=== PATIENT | male | born 1940 | race Caucasian/White ===

== ENCOUNTER 2019-01-06 09:56 | Inpatient (IN) | payer MEDICARE ==
--- NOTE | 2019-01-06 10:49 | RADIOLOGY REPORT (SQ) ---
EXAM DESCRIPTION: CHEST SINGLE VIEW COMPLETED DATE/TIME: 01/06/2019 10:45 am REASON FOR STUDY: cp COMPARISON: None. EXAM PARAMETERS: NUMBER OF VIEWS: One view. TECHNIQUE: Single frontal radiographic view of the chest acquired. RADIATION DOSE: NA LIMITATIONS: None. FINDINGS: LUNGS AND PLEURA: Mild bilateral interstitial airspace disease. MEDIASTINUM AND HILAR STRUCTURES: No masses. Contour normal. HEART AND VASCULAR STRUCTURES: Heart is enlarged. Mild central vascular prominence. BONES: No acute findings. HARDWARE: None in the chest. OTHER: No other significant finding. IMPRESSION: Cardiomegaly. Mild interstitial edema is suspected. TECHNICAL DOCUMENTATION: JOB ID: [id number] [email or web address]- All Rights Reserved Reading location - IP/workstation name: [email or web address]
[2019-01-06 11:00] LABS: ABSOLUTE BASOPHILS # (AUTO) 0.1 10^3/uL (0.0-0.2); ABSOLUTE EOSINOPHILS # (AUTO) 0.2 10^3/uL (0.0-0.6); ABSOLUTE LYMPHOCYTES (AUTO) 1.9 10^3/uL (0.5-4.7); ABSOLUTE MONOCYTES (AUTO) 0.9 10^3/uL (0.1-1.4); ABSOLUTE NEUT (AUTO) 6.4 10^3/uL (1.7-8.2); BASOPHILS % (AUTO) 0.8 % (0-2); EOSINOPHILS % (AUTO) 1.8 % (0-6); HEMATOCRIT 46.4 % (37.9-51.0); HEMOGLOBIN 15.5 g/dL (13.5-17.0); LYMPHOCYTES % (AUTO) 20.1 % (13-45); MEAN CORPUSCULAR HEMOGLOBIN 30.1 pg (27.0-33.4); MEAN CORPUSCULAR HGB CONC 33.4 g/dL (32.0-36.0); MEAN CORPUSCULAR VOLUME 90 fl (80-97); MONOCYTES % (AUTO) 9.6 % (3-13); PLATELET COUNT 216 10^3/uL (150-450); RED BLOOD COUNT 5.14 10^6/uL (4.35-5.55); RED CELL DISTRIBUTION WIDTH 15.5 % (11.5-14.0); SEGMENTED NEUTROPHILS % (AUTO) 67.7 % (42-78); TOTAL CELLS COUNTED % (AUTO) 100 %; WHITE BLOOD COUNT 9.5 10^3/uL (4.0-10.5)
[2019-01-06 11:21] LABS: INTERNATIONAL RATION (INR) 1.26; PROTHROMBIN TIME 16.4 SEC (11.4-15.4)
[2019-01-06 11:25] LABS: ALANINE AMINOTRANSFERASE 48 U/L (21-72); ALBUMIN 3.7 g/dL (3.5-5.0); ALKALINE PHOSPHATASE 63 U/L (38-126); ANION GAP 13 (5-19); ASPARTATE AMINO TRANSFERASE 63 U/L (17-59); BILIRUBIN,DIRECT 0.7 mg/dL (0.0-0.4); BILIRUBIN,TOTAL 1.3 mg/dL (0.2-1.3); BLOOD UREA NITROGEN 33 mg/dL (7-20); CALCIUM 9.5 mg/dL (8.4-10.2); CARBON DIOXIDE 24 mmol/L (22-30); CHLORIDE 90 mmol/L (98-107); CREATINE KINASE 75 U/L (55-170); GLUCOSE 153 mg/dL (75-110); LIPASE 105.2 U/L (23-300); POTASSIUM 5.1 mmol/L (3.6-5.0); SODIUM 126.8 mmol/L (137-145)
[2019-01-06] MEDS ORDERED: DIGOXIN INJ 0.5 MG/2 ML AMPULE IV ONE ×2 (11:27→14:30)
[2019-01-06 11:35] LABS: CREATINE KINASE MB 7.94 ng/mL (<4.55)
[2019-01-06 11:38] LABS: TROPONIN I 1.16 ng/mL
[2019-01-06] MEDS ORDERED: HEPARIN SODIUM,PORCINE/D5W 25,000 UNIT/250 ML RTUINJ IV PRN (12:12)
[2019-01-06] MEDS ORDERED: HEPARIN SOD (PORCINE) 1,000 UNIT/ML 10 ML VIAL IV ONE (12:12)
[2019-01-06] MEDS ORDERED: ACETAMINOPHEN 325 MG TABLET PO PRN (12:35)
[2019-01-06] MEDS ORDERED: ASPIRIN 81 MG TABLET, CHEWABLE PO ONE (12:35)
[2019-01-06] MEDS ORDERED: ONDANSETRON HCL INJ/PF 4 MG/2 ML SDV IV PRN (12:35)
[2019-01-06] MEDS ORDERED: ENOXAPARIN SODIUM INJ 60 MG/0.6 ML DISP.SYRIN SUBCUT SCH (12:45)
[2019-01-06] MEDS ORDERED: NITROGLYCERIN 2% OINTMENT 1 GM PACKET TP SCH (12:45)
--- NOTE | 2019-01-06 13:05 | ER Document Report ---
ED General - General Chief Complaint: Chest Pain Stated Complaint: CHEST PAIN Time Seen by Provider: 01/06/19 10:21 TRAVEL OUTSIDE OF THE [place] IN LAST 30 DAYS: No - HPI Patient complains to provider of: Chest pain generalized weakness Notes: Patient coming in today for right-sided chest pain generalized weakness dyspnea on exertion. The symptoms been ongoing for the last few days however chest pain started earlier this morning when the patient was resting sitting down eating breakfast. Patient states chest pain was right-sided and did go up into the right side of his neck. Patient states upon my evaluation still having some minimal pain however not as intense as it was initially. States pain lasted for a few minutes. Patient denies any nausea vomiting dizziness syncope with this. According to the family members at bedside patient normally resides in [facility] however is down in [place] in [place] during the winter months to stay with family. States he has been here in [place] for approximately the last 2 months. Otherwise patient was recently diagnosed at a local urgent care for new onset atrial fibrillation and has a echo to be per formed in the next 24 hours also was diagnosed with new onset CHF and was started on Lasix otherwise patient has a history of hypertension is on lisinopril no other medical issues patient except for COPD. Patient does not smoke at this time. Patient otherwise looks to be no obvious distress. States he has had some swelling in his legs and dyspnea on exertion unable to work approximately 20-30 feet without becoming very dyspneic. Denies any previous cardiac studies such as a 2D echo stress test catheterization. - Related Data Allergies/Adverse Reactions: No Known Allergies Allergy (Unverified 01/06/19 09:59) Past Medical History - Social History Smoking Status: Former Smoker Frequency of alcohol use: None Drug Abuse: None Family History: Reviewed & Not Pertinent Patient has suicidal ideation: No Patient has homicidal ideation: No - Past Medical History Cardiac Medical History: Reports: Hx Atrial Fibrillation, Hx Congestive Heart Failure Pulmonary Medical History: Reports: Hx COPD Renal/ Medical History: Denies: Hx Peritoneal Dialysis Past Surgical History: Reports: Hx Cholecystectomy, Hx Tonsillectomy Review of Systems - Review of Systems Constitutional: Weakness EENT: No symptoms reported Cardiovascular: Chest pain Respiratory: No symptoms reported Gastrointestinal: No symptoms reported Genitourinary: No symptoms reported Male Genitourinary: No symptoms reported Musculoskeletal: No symptoms reported Skin: No symptoms reported Hematologic/Lymphatic: No symptoms reported Neurological/Psychological: No symptoms reported -: Yes All other systems reviewed and negative Physical Exam - Vital signs Vitals: Pulse Ox 97 01/06/19 10:22 Interpretation: Normal - General General appearance: Appears well, Alert - HEENT Head: Normocephalic, Atraumatic Eyes: Normal Pupils: PERRL - Respiratory Respiratory status: No respiratory distress Chest status: Nontender Breath sounds: Normal Chest palpation: Normal - Cardiovascular Rhythm: Regular Heart sounds: Normal auscultation Murmur: No - Abdominal Inspection: Normal Distension: No distension Bowel sounds: Normal Tenderness: Nontender Organomegaly: No organomegaly - Back Back: Normal, Nontender - Extremities General upper extremity: Normal inspection, Nontender, Normal color, Normal ROM, Normal temperature General lower extremity: Normal inspection, Nontender, Edema - 2+ edema bilaterally, Normal color, Normal ROM, Normal temperature, Normal weight be aring. No: Darci's sign - Neurological Neuro grossly intact: Yes Cognition: Normal Orientation: AAOx4 [place] Coma Scale Eye Opening: Spontaneous [place] Coma Scale Verbal: Oriented [place] Coma Scale Motor: Obeys Commands [place] Coma Scale Total: 15 Speech: Normal Motor strength normal: LUE, RUE, LLE, RLE Sensory: Normal - Psychological Associated symptoms: Normal affect, Normal mood - Skin Skin Temperature: Warm Skin Moisture: Dry Skin Color: Normal Course - Re-evaluation Re-evalutation: 01/06/19 13:56 Chest x-ray shows mild interstitial edema EKG initially showed A. fib with increased rate possibly RVR. Patient was brought back immediately and was given a dose of digoxin. Did have improvement of his heart rate. Continue monitoring of the patient laboratory studies showed possible end STEMI. Troponin returned back at 1.1 with elevated BUN/creatinine showing renal failure also elevated BNP. I did discuss the case with the on-call shotgun shell assembly machine operator Dr. Balderas. At this time the patient is right-sided chest pain has resolved. Dr. Balderas has requested a VQ scan be obtained however at this time does not think the p atient requires transfer to tertiary care facility. Did discuss with hospitalist CRISTAL Barbosa who will come down and evaluate the patient for admission. Heparin drip was started due to elevated troponin A. fib and possibility of having a PE VQ scan is ordered. - Vital Signs Vital signs: Temp Pulse Resp BP Pulse Ox 14 112/94 H 96 01/06/19 12:01 01/06/19 12:01 01/06/19 12:01 - Laboratory Result Diagrams: 01/06/19 10:34 01/06/19 10:34 Laboratory results interpreted by me: 01/06/19 01/06/19 01/06/19 10:34 10:34 10:34 RDW 15.5 H PT 16.4 H Sodium 126.8 L Potassium 5.1 H Chloride 90 L BUN 33 H Creatinine 1.96 H Est GFR ( Amer) 40 L Est GFR (Non-Af Amer) 33 L Glucose 153 H Direct Bilirubin 0.7 H AST 63 H CK-MB (CK-2) NT-Pro-B Natriuret Pep 01/06/19 10:34 RDW PT Sodium Potassium Chloride BUN Creatinine Est GFR ( Amer) Est GFR (Non-Af Amer) Glucose Direct Bilirubin AST CK-MB (CK-2) 7.94 H NT-Pro-B Natriuret Pep 66082 H Critical Care Note - Critical Care Note Total time excluding time spent on procedures (mins): 35 Comments: Multiple evaluation patient with A. fib elevated rate and STEMI requiring consultation with specialty care members Discharge - Discharge Clinical Impression: New onset atrial fibrillation, NSTEMI (non-ST elevated myocardial infarction), Weakness, Right-sided chest pain, CHF (congestive heart failure) Condition: Good Disposition: ADMITTED INPATIENT Admitting Provider: Bharathiist Mojgan Barbosa/Eloisa Unit Admitted: [facility]
[2019-01-06] MEDS ORDERED: ALBUTEROL SULFATE HFA (90 MCG/PUFF) 200 PUFF/8.5 GM MDI IH PRN (13:42)
[2019-01-06] MEDS ORDERED: (PENDING PHARMACY ID) (Cyanocobalamin/Folic Ac/Vit B6 [Folbic Tablet] 1 TAB) PO SCH (13:45)
[2019-01-06] MEDS ORDERED: LISINOPRIL 5 MG TABLET PO SCH (13:45)
--- NOTE | 2019-01-06 14:19 | RADIOLOGY REPORT (SQ) ---
EXAM DESCRIPTION: NM LUNG VENT/PERF SCAN COMPLETED DATE/TIME: 01/06/2019 1:49 pm REASON FOR STUDY: cp elevated trop COMPARISON: Chest x-ray done earlier the same day. RADIONUCLIDE AND DOSE: 5.35 millicuries TC-99m MAA Intravenous 31.3 millicuries TC-99m DTPA Inhaled aerosol TECHNIQUE: Eight views of the lungs acquired post ventilation of DTPA aerosol. Eight matching views of the lungs acquired following injection of MAA. LIMITATIONS: None. FINDINGS: VENTILATION: Symmetric and homogeneous distribution of DTPA aerosol during ventilatory pha se. No significant areas of photopenia. PERFUSION: Perfusion images with normal homogenous activity and no wedge-shaped or segmental defects. No ventilation-perfusion mismatches. OTHER: No other significant finding. IMPRESSION: NORMAL VENTILATION-PERFUSION LUNG SCAN. NEGATIVE FOR PULMONARY EMBOLI. TECHNICAL DOCUMENTATION: JOB ID: [id number] [employer]- All Rights Reserved Reading location - IP/workstation name: [email or web address]
--- NOTE | 2019-01-06 14:37 | RADIOLOGY REPORT (SQ) ---
EXAM DESCRIPTION: CT ABDOMEN NO ORAL OR IV COMPLETED DATE/TIME: 01/06/2019 2:11 pm REASON FOR STUDY: EARLY SATIETY, diarrhea, bloating COMPARISON: None. TECHNIQUE: CT scan of the abdomen performed without intravenous contrast and without oral contrast. Images reviewed with lung, soft tissue, and bone windows. Reconstructed coronal and sagittal MPR im ages reviewed. All images stored on PACS. All CT scanners at this facility use dose modulation, iterative reconstruction, and/or weight based d osing when appropriate to reduce radiation dose to as low as reasonably achievable (ALARA). [facility]: Dose Right [facility]: CareDose [facility]: Dose Right [facility]: Teradose 4D [facility]: Smart [facility] [employer] RADIATION DOSE: CT Rad equipment meets quality standard of care and radiation dose reduction techniq ues were employed. CTDIvol: 18.9 mGy. DLP: 1070 mGy-cm.mGy. LIMITATIONS: None. FINDINGS: LOWER CHEST: There are small bilateral pleural effusions. There is bibasilar atelectasis. Probable underlying fibrosis. NONCONTRASTED LIVER, SPLEEN, ADRENALS: Evaluation limited by lack of IV contrast. No identified sign ificant masses. PANCREAS: No masses. No peripancreatic inflammatory changes. GALLBLADDER: Surgically absent. RIGHT KIDNEY AND URETER: No suspicious masses. Assessment limited by lack of IV contrast. No signif icant calcifications. No hydronephrosis or hydroureter. LEFT KIDNEY AND URETER: No suspicious masses. Assessment limited by lack of IV contrast. No signifi cant calcifications. No hydronephrosis or hydroureter. AORTA AND RETROPERITONEUM: Atherosclerotic change throughout the vascular structures. No aneurysm. BOWEL AND PERITONEAL CAVITY: Scattered diverticuli. No acute diverticulitis. No focal inflammatory changes. No free air or free fluid. APPENDIX: Normal. ABDOMINAL WALL: No abdominal wall hernias. BONES: No significant findings. OTHER: There is presacral soft tissue thickening. This is nonspecific IMPRESSION: 1. Small bilateral pleural effusions. 2. Scattered diverticuli. No acute diverticulitis. TECHNICAL DOCUMENTATION: JOB ID: [id number] Quality ID # [id number]: Final reports with documentation of one or more dose reduction techniques (e.g., Au tomated exposure control, adjustment of the mA and/or kV according to patient size, use of iterative reconstruction technique) 2010 [employer]- All Rights Reserved Reading location - IP/workstation name: [email or web address]
[2019-01-06] MEDS ORDERED: SODIUM POLYSTYRENE SULFONATE 15 GM/60 ML PO ONE (14:56)
--- NOTE | 2019-01-06 15:02 | PDOC H&P ---
History of Present Illness Admission Date/PCP: 01/06/2019 piping supervisor: Dr. Wayne Ybarra in [place] [phone] Patient complains of: Shortness of breath and lower extremity edema History of Present Illness: CLINTON TRUJILLO is a 78 year old male lives in [place] but comes to [facility] in the [place]. He has been relatively healthy all of his life. He is treated in [place] for underlying COPD and diet-controlled diabetes. The patient had been in his usual state of health until about 3 weeks ago. He started having worsening lower extremity edema and dyspnea on exertion. He was seen at a local urgent care and was found to have atrial fibrillation. He was not placed on any rate controlling medications at that time. The urgent care had ordered a 2D cardiac echo which has not been done. He had been started on 40 mg of Lasix daily as well as 5 mg of lisinopril daily. In any event over the past 2-3 days the patient has had increasing weakness. He has had difficulty walking due to the lower extremity edema and the worsening shortness of breath. The shortness of breath reached the point that he presented to the emergency room for further evaluation. When I went to see the patient he is resting in the bed. He is not in any acute distress and his heart rate is ranging between 100-110 while I am in the room. In addition to the edema and shortness of breath the patient has had some GI issues recently. He is not eating well at all and basically has been using supplements for the past week or so. He has early satiety and just takes a couple of bites of food and feels bloated. Usually he has had constipation but most recently has developed diarrhea. He had rather significant diarrhea a couple of days ago but has had none today. In the emergency room he was found to have atrial fibrillation with a rapid rate in the 120s-130s. He has multiple laboratory abnormalities. He has a relatively normal CBC with a hemoglobin of 15.5 and white count of 9.5. He has a chemistry panel reveals a sodium level of 126.8, potassium level of 5.1, creatinine of 1.96, glucose of 153 and a mildly elevated AST level. BNP is 11,400 and troponin initial troponin was elevated at 1.16. EKG reveals atrial fibrillation with a rate of 106 and a borderline prolonged QT interval. QTC is 485 484. Chest x-ray reveals cardiomegaly and mild pulmonary edema. In the emergency room the patient was given a dose of IV digoxin and his rate his improved but is still ranging between [address] Caal was called by the emergency room physician who felt that we could take care of this patient here. Past Medical History Cardiac Medical History: Reports: Atrial Fibrillation - Diagnosed just last week at an urgent care., Congestive Heart Failure - He has not had an echocardiogram. This was [facility] Pulmonary Medical History: Reports: Chronic Obstructive Pulmonary Disease (COPD) EENT Medical History: Reports: Cataracts Neurological Medical History: Reports: None Endocrine Medical History: Reports: Other - Diet controlled diabetes Renal/ Medical History: Denies: Chronic Kidney Disease, Nephrolithiasis Malignancy Medical History: Reports: None GI Medical History: Reports: None Musculoskeltal Medical History: Reports: None Skin Medical History: Reports: None Psychiatric Medical History: Reports: None, Tobacco Dependency Traumatic Medical History: Reports: None Hematology: Reports: None Infectious Medical History: Reports: None Past Surgical History Past Surgical History: Reports: Cholecystectomy, Tonsillectomy, Other - cataracts Social History Information Source: Patient Lives with: Spouse/Significant other Smoking Status: Former Smoker - He has a 50 year history of smoking but quir 3 years ago Frequency of Alcohol Use: None Drugs: None Hx Prescription Drug Abuse: No - Advance Directive Resuscitation Status: Full Code Surrogate healthcare decision maker:: Winnie Mlceod and his son Clinton Trujillo Family History Family History: CAD, Malignancy - esophgageal, Other - Alzheimers Parental Family History Reviewed: Yes Children Family History Reviewed: Yes Sibling(s) Family History Reviewed.: Yes Medication/Allergy Home Medications: Albuterol Sulfate [Proair HFA Inhalation Aerosol 8.5 gm MDI] 2 puff IH Q4HP PRN 01/06/19 Aspirin [Ecotrin] 81 mg PO DAILY 01/06/19 Cetirizine HCl [Allergy Relief] 10 mg PO DAILY 01/06/19 Cholecalciferol (Vitamin D3) [Vitamin D3 5000 unit Capsule] 5,000 unit PO DAILY 01/06/19 Cyanocobalamin (Vitamin B-12) [Vitamin B-12] 500 mcg SL DAILY 01/06/19 Cyanocobalamin/Folic AC/Vit B6 [Folbic Tablet] 1 tab PO DAILY 01/06/19 Furosemide [Lasix 40 mg Tablet] 40 mg PO DAILY 01/06/19 Ipratropium/Albuterol Sulfate [Combivent Respimat 4 gm Mdi] 1 puff IH BID 01/06/19 Lisinopril [Prinivil 5 mg Tablet] 5 mg PO DAILY 01/06/19 Allergies/Adverse Reactions: No Known Allergies Allergy (Unverified 01/06/19 09:59) Review of Systems Constitutional: PRESENT: fatigue, weakness. ABSENT: chills, fever(s), headache(s), night sweats, weight loss Eyes: ABSENT: visual disturbances Ears: ABSENT: hearing changes Cardiovascular: PRESENT: dyspnea on exertion, edema, orthropnea, palpitations. ABSENT: chest pain Respiratory: PRESENT: dyspnea. ABSENT: cough, hemoptysis, sputum Gastrointestinal: PRESENT: bloating, constipation, diarrhea, other - Early satiety. ABSENT: abdominal pain, dysphagia, hematemesis, hematochezia, nausea, vomiting Genitourinary: ABSENT: dysuria, hematuria Musculoskeletal: ABSENT: joint swelling Integumentary: ABSENT: rash, wounds Neurological: ABSENT: abnormal gait, abnormal speech, confusion, dizziness, focal weakness, syncope Psychiatric: ABSENT: anxiety, depression, homidical ideation, suicidal ideation Endocrine: ABSENT: cold intolerance, heat intolerance, polydipsia, polyuria Physical Exam Vital Signs: Temp Pulse Resp BP Pulse Ox 14 112/94 H 96 01/06/19 12:01 01/06/19 12:01 01/06/19 12:01 Intake & Output 01/05/19 01/06/19 01/07/19 06:59 06:59 06:59 Weight 114.9 kg General appearance: PRESENT: no acute distress, obese, well-developed, well-nourished Head exam: PRESENT: atraumatic, normocephalic Eye exam: PRESENT: conjunctiva pink, EOMI, PERRLA. ABSENT: scleral icterus Ear exam: PRESENT: normal external ear exam Mouth exam: PRESENT: moist, tongue midline Teeth exam: PRESENT: other Neck exam: ABSENT: carotid bruit, JVD, lymphadenopathy, thyromegaly Respiratory exam: PRESENT: crackles, decreased breath sounds Cardiovascular exam: PRESENT: other - Somewhat irregular GI/Abdominal exam: PRESENT: normal bowel sounds, soft. ABSENT: distended, guarding, mass, organolmegaly, rebound, tenderness Rectal exam: PRESENT: deferred Extremities exam: PRESENT: other - 2+ pitting edema that extends up into the presacral area. Musculoskeletal exam: PRESENT: ambulatory Neurological exam: PRESENT: alert, awake, oriented to person, oriented to place, oriented to time, oriented to situation, CN II-XII grossly intact. ABSENT: m otor sensory deficit Psychiatric exam: PRESENT: appropriate affect, normal mood. ABSENT: homicidal ideation, suicidal ideation Skin exam: PRESENT: dry, intact, warm. ABSENT: cyanosis, rash Results Laboratory Results: 01/06/19 10:34 01/06/19 10:34 01/06/19 01/06/19 01/06/19 10:34 10:34 10:34 WBC 9.5 RBC 5.14 Hgb 15.5 Hct 46.4 MCV 90 MCH 30.1 MCHC 33.4 RDW 15.5 H Plt Count 216 Seg Neutrophils % 67.7 Lymphocytes % 20.1 Monocytes % 9.6 Eosinophils % 1.8 Basophils % 0.8 Absolute Neutrophils 6.4 Absolute Lymphocytes 1.9 Absolute Monocytes 0.9 Absolute Eosinophils 0.2 Absolute Basophils 0.1 Sodium 126.8 L Potassium 5.1 H Chloride 90 L Carbon Dioxide 24 Anion Gap 13 BUN 33 H Creatinine 1.96 H Est GFR ( Amer) 40 L Est GFR (Non-Af Amer) 33 L Glucose 153 H Calcium 9.5 Total Bilirubin 1.3 AST 63 H ALT 48 Alkaline Phosphatase 63 Total Protein 7.0 Albumin 3.7 Lipase 105.2 TSH 2.82 01/06/19 01/06/19 10:34 10:34 Creatine Kinase 75 CK-MB (CK-2) 7.94 H Troponin I 1.160 NT-Pro-B Natriuret Pep 93812 H Impressions: Chest X-Ray 01/06/19 10:22 IMPRESSION: Cardiomegaly. Mild interstitial edema is suspected. Assessment and Plan - Diagnosis (1) New onset atrial fibrillation Is this a current diagnosis for this admission?: Yes Plan: The patient was diagnosed last week with new onset atrial fibrillation. I am going to give him an additional dose of IV digoxin and cardiology has been consulted. We will leave him on telemetry telemetry monitoring. Due to his elevated troponin we are going to start him on a heparin drip. Further plan of care per cardiology (2) NSTEMI (non-ST elevated myocardial infarction) Is this a current diagnosis for this admission?: Yes Plan: The patient has a troponin of 1.2. This could be driven by his atrial fib rillation and heart failure. We will trend his serial troponins overnight. Currently on a heparin drip. Blood pressure is a little bit on the low side. We will hold off on further orders until cardiology sees him. I have ordered a stat 2D cardiac echo (3) CHF (congestive heart failure) Is this a current diagnosis for this admission?: Yes Plan: I suspect this is systolic congestive heart failure due to his significant cardi omegaly on chest x-ray. He may have right-sided heart failure as well due to his lower extremity edema. He was placed on an JAIRO inhibitor last week which I will hold for now due to his renal failure as well as his hyperkalemia.. Echocardiogram has been ordered (4) Acute renal failure Is this a current diagnosis for this admission?: Yes Plan: The patient states that he is always had normal renal function. Currently his creatinine is 1.6. He does look a little bit dry at this point and I will defer to Dr. Balderas whether he needs to be diuresed. I will hold off on fluids for now. He has been receiving 40 mg of Lasix daily as well as an JAIRO inhibitor. I will stop the Lasix and we will defer to Dr. Balderas for ma nagement. He will have a chemistry panel drawn in the morning (5) Hyperkalemia Is this a current diagnosis for this admission?: Yes Plan: Possibly due to his acute renal failure versusHis JAIRO inhibitor. I am going to hold his JAIRO inhibitor until Dr. vasquez sees the patient. He will be given a one-time dose of Kayexalate today. (6) Acute hyponatremia Is this a current diagnosis for this admission?: Yes Plan: Of undetermined significance at this point. Will order serum and urine osmole's as well as urine sodium level. We will check a chemistry panel in the morning. (7) Early satiety Is this a current diagnosis for this admission?: Yes Plan: This is progressed to the point that the patient can hardly tolerate any p.o. intake. We will start with a noncontrasted CT scan of the abdomen and pelvis. He states that he feels quite bloated at times. He also complains that he has had issues with constipation but most recently developed diarrhea. Currently with no bowel movement. His abdominal exam is unremarkable. Will follow up with CT scan results. He does have a mildly elevated AST. He will have liver function tests drawn in the morning. (8) Full code status Is this a current diagnosis for this admission?: Yes - Time Time Spent with patient: 35 or more minutes - Inpatient Certification Medical Necessity: Other - The patient has been fully admitted to the hospital. He needs cardiology evaluation. He has new onset atrial fibrillation and congestive heart failure that need workup. I expect his hospitalization will span greater than 2 midnights.
[2019-01-06] MEDS ORDERED: HEPARIN SOD (PORCINE) 1,000 UNIT/ML 10 ML VIAL IV PRN (15:12)
[2019-01-06 15:24] LABS: CREATINE KINASE MB 6.95 ng/mL (<4.55); TROPONIN I 1.32 ng/mL
--- NOTE | 2019-01-06 16:46 | XCELERA REPORT ---
[address] [id number] Lower Extremity Venous Evaluation Procedure: A bilateral duplex scan of the lower extremity veins was performed. The evaluation included responses to compression and other maneuvers. Right Sided Venous Evaluation There is a 2.9 cms Popliteal aneurysm, with loose and adherent echogenic material. Triphasic flow at least to the distal Popliteal. Normal vessel filling wall to wall, compression and augmentation as well as Colour flow down to the infrageniculate veins. Left Sided Venous Evaluation Normal vessel filling wall to wall, compression and augmentation as well as Colour flow down to the infrageniculate veins. Critical Findings Discussed with Dang Barbosa at [id number]. Interpretation Summary No duplex evidence of DVT or obstruction in the bilateral lower extremities. 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 Name: CLINTON TRUJILLO Age: 78 yrs Gender: Male : 1940 Patient Status: Emergency Patient Location: [address] Study Date: 01/06/2019 03:37 PM Reason For Study: leg swelling Ordering Physician: DANG BARBOSA Performed By: Chato Thornton : DANG BARBOSA > French Dutta
[2019-01-06] MEDS ORDERED: PATIROMER 8.4 GM SUSP PACKET PO ONE (17:00)
[2019-01-06] MEDS ORDERED: IPRATROPIUM/ALBUTEROL 120 PUFF/4 GM MDI IH SCH (18:00)
[2019-01-06] MEDS ORDERED: NORMAL SALINE 1000 ML 1,000 ML IV ONE (20:00)
--- NOTE | 2019-01-06 20:51 | PDOC TRANSFER SUMMARY ---
General Admission Date/PCP: 01/06/19 13:45 Primary CARE physician: Dr. 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 I have spoken to vascular surgery as well as the hospitalist service and he will be transferred to a tertiary center as soon as a bed is found. (2) New onset atrial fibrillation Is this a current diagnosis for this admission?: Yes Diagnosis Summary: The patient had a rapid rate between 120 and 130. He is received 2 doses of IV digoxin. Currently remains in atrial fibrillation with a heart rate of around 106. (3) NSTEMI (non-ST elevated myocardial infarction) Is this a current diagnosis for this admission?: Yes Diagnosis Summary: Initial troponin was 1.1. At his risen to 1.3. Serial troponins will continue through the night until he is transferred. (4) CHF (congestive heart failure) Is this a current diagnosis for this admission?: Yes Diagnosis Summary: The patient has market cardiomegaly on his chest x-ray. I suspect this is a systolic congestive heart failure. I do not believe he is acute as he appears to be dry at this point. He was placed on 40 mg of Lasix at the urgent care and he has an acute kidney injury. Currently he is receiving 1 L of fluid. (5) Acute renal failure Is this a current diagnosis for this admission?: Yes Diagnosis Summary: Possibly from diuresis with IV Lasix. He will receive 1 L of normal saline tonight. (6) Hyperkalemia Is this a current diagnosis for this admission?: Yes Diagnosis Summary: He received a one-time dose of Veltassa (7) Acute hyponatremia Is this a current diagnosis for this admission?: Yes Diagnosis Summary: His sodium level was low at the time of admission. If he remains here overnight he will have a chemistry panel drawn in the morning. (8) Early satiety Is this a current diagnosis for this admission?: Yes Diagnosis Summary: He had a CT scan of the abdomen and pelvis which was unremarkable. He may need GI evaluation down the road but his other issues are far more important. The patient has not been eating well (9) Full code status Is this a current diagnosis for this admission?: Yes - Transfer Medications Home Medications: Albuterol Sulfate [Proair HFA Inhalation Aerosol 8.5 gm MDI] 2 puff IH Q4HP PRN 01/06/19 Aspirin [Ecotrin] 81 mg PO DAILY 01/06/19 Cetirizine HCl [Allergy Relief] 10 mg PO DAILY 01/06/19 Cholecalciferol (Vitamin D3) [Vitamin D3 5000 unit Capsule] 5,000 unit PO DAILY 01/06/19 Cyanocobalamin (Vitamin B-12) [Vitamin B-12] 500 mcg SL DAILY 01/06/19 Cyanocobalamin/Folic AC/Vit B6 [Folbic Tablet] 1 tab PO DAILY 01/06/19 Furosemide [Lasix 40 mg Tablet] 40 mg PO DAILY 01/06/19 Ipratropium/Albuterol Sulfate [Combivent Respimat 4 gm Mdi] 1 puff IH BID 01/06/19 Lisinopril [Prinivil 5 mg Tablet] 5 mg PO DAILY 01/06/19 Transfer Medications: Current Medications Acetaminophen (Tylenol 325 Mg Tablet) 650 mg PO Q4HP PRN PRN Reason: FOR HEADACHE Stop: 02/05/19 12:34 Albuterol (Proair Hfa Inhalation Aerosol 8.5 Gm Mdi) 2 puff IH Q4HP PRN PRN Reason: FOR WHEEZING Stop: 02/05/19 13:41 Albuterol/Ipratropium (Combivent Respimat 4 Gm Mdi) 1 puff IH BID CE Stop: 02/05/19 17:59 Last Admin: 01/06/19 18:46 Dose: 1 puff Documented by: Aspirin (Ecotrin 81 Mg Ec Tablet) 81 mg PO DAILY CE Stop: 02/06/19 09:59 Atorvastatin Calcium (Lipitor 80 Mg Tablet) 80 mg PO QHS CE Stop: 02/05/19 21:59 Cetirizine HCl (Zyrtec 10 Mg Tablet) 10 mg PO DAILY CE Stop: 02/06/19 09:59 Cholecalciferol (Vitamin D3 1000 Unit Tablet) 5,000 unit PO DAILY CE Stop: 02/06/19 09:59 Folic Acid (Folbee Tablet) 1 tab PO DAILY [facility] Stop: 02/06/19 09:59 Heparin Sodium (Porcine) (Heparin Inj 1,000 Unit/Ml 10 Ml Vial) 0 - 12,000 unit IV .BOLUS PER PROTOCOL PRN; Protocol PRN Reason: RESPOND TO aPTT VALUE Stop: 02/05/19 15:11 Heparin Sodium/Dextrose (Heparin Rtu 25,000 Unit/250 Ml D5w Premix) 25,000 unit in 250 mls @ 0 mls/hr IV CONTINUOUS PRN; Protocol PRN Reason: THIS MED IS NOT "PRN" Stop: 02/05/19 12:11 Last Admin: 01/06/19 14:14 Dose: 8.7 unit/kg/hr, 10 mls/hr Documented by: Sodium Chloride (Nacl 0.9% 1000 Ml Iv Soln) 1,000 mls @ 500 mls/hr IV X 1 BAG ONE Stop: 01/06/19 21:59 Last Admin: 01/06/19 19:48 Dose: 500 mls/hr Documented by: Lisinopril (Prinivil 5 Mg Tablet) 5 mg PO DAILY CE Stop: 02/05/19 13:44 Last Admin: 01/06/19 14:30 Dose: Not Given Documented by: Ondansetron HCl (Zofran Inj/Pf 4 Mg/2 Ml Sdv) 4 mg IV Q6HP PRN PRN Reason: FOR NAUSEA/VOMITING Stop: 02/05/19 12:34 Patient Own Medication (Cyanocobalamin (Vitamin B-12) [Vitamin B-12]) 500 mcg SL .DAILY CE Stop: 02/06/19 09:59 Sodium Chloride (Saline Flush 2.5 Ml Monoject Prefil Syrin) 2.5 ml IV Q8 CE Stop: 02/05/19 13:59 Last Admin: 01/06/19 14:26 Dose: Not Given Documented by: - Allergies Allergies/Adverse Reactions: No Known Allergies Allergy (Unverified 01/06/19 09:59) - Diet/Activity Discharge Diet: Clear Liquids Hospital Course Hospital Course: The patient is an 78-year-old male with a past medical history significant for COPD. He has had no other significant medical problems and has never been hospitalized. He presented to the emergency room with a 3-week history of worsening shortness of breath and lower extremity edema. He had been seen at a local urgent care and an EKG revealed that he was in atrial fibrilla tion with a controlled rate. The provider that saw him felt as if he needed an echocardiogram and was in the process of setting one up as an outpatient. The patient does not have any physicians locally as he resides in [place]. He comes down here for a couple of months in the winter as 1 of their children lives here. In any event his shortness of breath worsened. He presented to our facility this morning and was found to be in atrial fibrillation with rapid ventricular response. His rate was in the 120s-130s. Initial troponin was elevated at 1.1. He had evidence of acute renal failure with a creatinine of 1.9 and a BUN of 33. He had sodium level of 126, potassium of 5.1. BNP was e levated 11,400. EKG revealed atrial fibrillation with a rapid rate. Chest x- ray revealed cardiomegaly with evidence of mild pulmonary edema. The patient's told me that when they were driving to [place] over the weekend that the patient developed pain in his calves. Due to this I ordered venous Dopplers which revealed a 2.9 cm aneurysm and the vascular surgeon who read the scan felt as if it was potentially limb threatening and recommended transfer to facility that had vascular surgery. Also at the time of admission the patient reports a several week history of early satiety. He feels bloated. Usually he is constipated but recently had a bout of diarrhea. He states that really he is not been able to eat anything because he just gets so full when he put something in his mouth. He has been drinking supplements. The patient has been admitted to the hospital. He is received 2 doses of IV digoxin and currently he remains in atrial fibrillation with a heart rate of about 106. He has been borderline hypotensive and clinically on exam looks dry. He is being given 1 L of IV fluids this evening. He has had a VQ scan which was negative for pulmonary embolus. CT scan of the abdomen and pelvis which was unremarkable. He has had a 2D echocardiogram performed and the results are not available as of the time of this dictation. Currently he is on a heparin drip. At the time of this dictation the patient has been accepted to 3 local facilities and is currently waiting on a bed. He has been accepted at [facility] under the service of Dr. Genevieve Bonner. He has been accepted at [facility] by Dr. Zapata. He has been accepted at [facility] by Dr. Akshat Mullins. None of these facilities have beds available and he will be transferred to the first 1 who has a bed. Physical Exam Vital Signs: Temp Pulse Resp BP Pulse Ox 97.3 F 112 H 18 93/74 L 95 01/06/19 17:12 01/06/19 19:44 01/06/19 19:44 01/06/19 19:44 01/06/19 19:44 Intake & Output 01/05/19 01/06/19 01/07/19 06:59 06:59 06:59 Output Total 0 Balance 0 Weight 117.9 kg General appearance: PRESENT: no acute distress, well-developed, well-nourished Head exam: PRESENT: atraumatic, normocephalic Eye exam: PRESENT: conjunctiva pink, EOMI, PERRLA. ABSENT: scleral icterus Mouth exam: PRESENT: dry mucosa Respiratory exam: PRESENT: crackles - He has some very fine crackles in the lower bases bilaterally but otherwise his lungs sound fairly clear Cardiovascular exam: PRESENT: RRR, systolic murmur. ABSENT: diastolic murmur, rubs Pulses: PRESENT: other - He has palpable dorsalis pedis and posterior tibial pulses on the left foot. He has very weak pulses noted on the right foot. Vascular exam: PRESENT: pallor - On the right lower extremity GI/Abdominal exam: PRESENT: normal bowel sounds, soft. ABSENT: distended, guarding, mass, organolmegaly, rebound, tenderness Rectal exam: PRESENT: deferred Extremities exam: PRESENT: +2 edema - That extends into the presacral area, other - Both of his feet are cool. He has dusky toes on the right foot that are somewhat discolored.. ABSENT: calf tenderness Neurological exam: PRESENT: alert, awake, oriented to person, oriented to place, oriented to time, oriented to situation, CN II-XII grossly intact. ABSENT: m otor sensory deficit Psychiatric exam: PRESENT: appropriate affect, normal mood. ABSENT: homicidal ideation, suicidal ideation Skin exam: PRESENT: dry, intact, warm. ABSENT: cyanosis, rash Results Laboratory Results: 01/06/19 10:34 01/06/19 10:34 0301/06/19 01/06/19 10:34 10:34 10:34 WBC 9.5 RBC 5.14 Hgb 15.5 Hct 46.4 MCV 90 MCH 30.1 MCHC 33.4 RDW 15.5 H Plt Count 216 Seg Neutrophils % 67.7 Lymphocytes % 20.1 Monocytes % 9.6 Eosinophils % 1.8 Basophils % 0.8 Absolute Neutrophils 6.4 Absolute Lymphocytes 1.9 Absolute Monocytes 0.9 Absolute Eosinophils 0.2 Absolute Basophils 0.1 Sodium 126.8 L Potassium 5.1 H Chloride 90 L Carbon Dioxide 24 Anion Gap 13 BUN 33 H Creatinine 1.96 H Est GFR ( Amer) 40 L Est GFR (Non-Af Amer) 33 L Glucose 153 H Calcium 9.5 Total Bilirubin 1.3 AST 63 H ALT 48 Alkaline Phosphatase 63 Total Protein 7.0 Albumin 3.7 Lipase 105.2 TSH 2.82 01/06/19 01/06/19 01/06/19 10:34 10:34 14:32 Creatine Kinase 75 CK-MB (CK-2) 7.94 H 6.95 H Troponin I 1.160 1.320 NT-Pro-B Natriuret Pep 00400 H 01/06/19 14:32 Creatine Kinase 72 CK-MB (CK-2) Troponin I NT-Pro-B Natriuret Pep Impressions: Abdomen CT 01/06/19 00:00 IMPRESSION: 1. Small bilateral pleural effusions. 2. Scattered diverticuli. No acute diverticulitis. Chest X-Ray 01/06/19 10:22 IMPRESSION: Cardiomegaly. Mild interstitial edema is suspected. [facility] 01/06[facility] 11:58 IMPRESSION: NORMAL VENTILATION-PERFUSION LUNG SCAN. NEGATIVE FOR PULMONARY EMBOLI. Plan Discharge Plan: Overall this patient needs to be transferred to a facility that has vascular surgery available as soon as possible. He has been accepted at 3 local facilities and will be transferred as soon as a bed is found. Time Spent: Greater than 30 Minutes
[2019-01-06 21:31] LABS: CREATINE KINASE MB 3.73 ng/mL (<4.55)
[2019-01-06 21:41] LABS: TROPONIN I 0.905 ng/mL
--- NOTE | 2019-01-06 21:49 | EKG REPORT ---
SEVERITY:- ABNORMAL ECG - ATRIAL FIBRILLATION BORDERLINE REPOL ABNORMALITY, INF-LAT LEADS BORDERLINE PROLONGED QT INTERVAL : Confirmed by: Jaz Balderas MD 06-Jan-2019 21:49:01
--- NOTE | 2019-01-06 21:49 | EKG REPORT ---
SEVERITY:- ABNORMAL ECG - ATRIAL FIBRILLATION NONSPECIFIC INTRAVENTRICULAR CONDUCTION DELAY ST DEPRESSION, CONSIDER ISCHEMIA, ANT-LAT LDS : Confirmed by: Jaz Balderas MD 06-Jan-2019 21:49:06
[2019-01-06] MEDS ORDERED: ATORVASTATIN CALCIUM 80 MG TABLET PO SCH (22:00)
--- NOTE | 2019-01-06 23:04 | PDOC CONSULTATION ---
Consultation-Blank Consultation: CARDIOLOGY CONSULTATION by Dr. Jaz Balderas on 01/06/2019. Patient seen at 5 PM on 01/06/2019. REASON FOR CONSULTATION: Patient with atrial fibrillation, of recent onset, with heart failure, and elevated troponin I. 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 HISTORY OF PRESENT ILLNESS: Patient is a 78-year-old male who lives in [place], but resides in [place] during the winter, states that is about 2 weeks ago started having progressive dyspnea on exertion. He was seen in the urgent care and found to be in new onset atrial fibrillation, and also heart failure. He was recommended to have a echocardiogram, and for further workup was set up with a teacher industrial arts. But the patient today had increasing shortness of breath with PND orthopnea and an increasing leg edema and weight gain, and came to the emergency room he was also having right-sided chest pain. He has a history of COPD, but no history of sleep apnea or asthma. He had a V/Q scan which was negative for pulmonary embolism. 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 The patient denies any prior history of WA or anginal symptoms. No prior history of atrial fibrillation except when he was diagnosed about 2 weeks ago. There is no history of TIA or CVA. There is no history of hypertension. The patient does have orthopnea PND and leg edema. There is no clear-cut anginal symptoms. There is no history of TIA CVA. He has history of diet-controlled diabetes mellitus. Although he states and corroborated by the son, the patient has no prior history of chronic chronic kidney disease, the patient's GFR is reduced. PAST MEDICAL ILLNESS: No history of hypertension or coronary artery disease. No history of WA. No prior history of congestive heart failure. Congestive heart failure seems to be recent onset of 2 weeks ago. No history of palpitations or cardiac arrhythmia. Newly diagnosed atrial fibrillation about 2 weeks ago. No history of syncope. No history of WA or anginal symptoms. No prior history of heart failure. Recent symptoms of PND and orthopnea and increasing leg edema. The patient had right leg pain about 2 weeks ago, but none recently except for swelling of the lower extremities. There is no symptoms suggestive of cellulitis of the legs or DVT in the past. He has no history of TIA CVA. He has history of diet-controlled diabetes mellitus. As mentioned earlier no prior history of chronic kidney disease. No history of TIA CVA. PAST SURGICAL HISTORY: Cholecystectomy. Tonsillectomy. Cataract surgery. Social HISTORY: The patient is a non-smoker. He quit smoking long time ago. There is no history of EtOH abuse. FAMILY HISTORY: No history of coronary artery disease or hypertension in the family. No history of sudden . ALLERGIES:: The patient has no known allergies. DISPOSITION: The patient is a full code. The patient's son is surrogate healthcare decision maker Review SYSTEMS: CONSTITUTIONAL: Denies any fever chills or rigors. Complains of generalized fatigue and weakness. HEAD: No history of headaches or head injury. EYES: No history of amblyopia diplopia. No history of amaurosis fugax. EARS: No history of hearing loss. No history of tinnitus. No history of recurrent ear infections. NOSE: No history of nosebleeds. No history of nasal polyps. No history of hayfever. MOUTH: No history of altered taste sensation. No history of ulcers in the mouth. THROAT: No history of odynophagia or dysphagia. No history of recurrent sore throats. SKIN: No history of pruritus. No history of yellowish discoloration of the skin. No history of psoriasis. No history of eczema. NECK: No history of neck pain. No swelling in the neck. LUNGS: History of COPD, no recent symptoms of acute exacerbation of COPD. No history of sleep apnea. No sick pulmonary embolism. No history of cough or wheezing. No history of pleuritic chest pain no history of hemoptysis. CARDIAC: Denies history of hypertension. No prior history of coronary artery disease. Patient with the elevated troponin I, without anginal symptoms. Noncardiac right-sided chest pain. This point first episode of admission for atrial fibrillation, with the atrial fibrillation onset being about 2 weeks ago. Clearly the patient will benefit from chronic anticoagulations therapy. Would recommend giving the patient digoxin 0.125 mg x2 doses to control the heart rate, since the blood pressure is on the low side. Patient with symptoms of biventricular failure. With the PND orthopnea leg edema. No history of syncope. No prior history of congestive heart failure. GI: No history of GI bleed. No history of fatty food intolerance. No history of altered bowel movements. No history of abdominal pain. No cervicitis. No history of cirrhosis. NO HISTORY OF JAUNDICE. Endocrine: History of diet-controlled diabetes mellitus. No history of thyroid disease. RENAL: Patient with the acute renal failure whether this is acute on chronic kidney disease is not known, since prior records not available from [place]. No symptoms a UTI. No history of hematuria pyuria dysuria. MUSCULOSKELETAL: Denies arthritis or collagen vascular disease. CURRENCY EXCHANGE SPECIALIST: No history of TIA CVA. No history of seizures headaches or migraines. PSYCHIATRIC: No history of anxiety or depression. No history of suicidal ideation. No history of homicidal ideation. VASCULAR: Patient with the diagnosis of popliteal aneurysm which may be limb threatening due to ischemia. No history of DVT. No prior history of calf or buttock claudication. HEMATOLOGICAL: No history of bleeding diathesis. No history of clotting disorders. PHYSICAL EXAMINATION: The patient is moderately obese. He is well-groomed. At present in no acute distress. Selected Entries 01/06/19 17:12 Temperature 97.3 F Temperature Oral Source Pulse Rate 106 H Pulse Rate [ 90 Right Finger] Respiratory 14 Rate Blood Pressure 100/71 [Left Upper Arm ] Blood Pressure 95/77 L [Right Upper Arm] Blood Pressure 80 Mean [Left Upper Arm] Blood Pressure 83 Mean [Right Upper Arm] Blood Pressure Supine Position [Left Upper Arm] Blood Pressure Supine Position [Right Upper Arm] O2 Sat by Pulse 98 Oximetry Oxygen Delivery Room Air Method ( includes room air) HEAD: Is atraumatic normocephalic. EYES: Pupils are equal round regular reactive to light accommodation. Extraocular movements are normal. There is no clinical pallor. There is no scleral icterus. EARS: Tympanic membranes are intact. External auditory canals are clear. NOSE: There is no deviated nasal septum. There is no inflammation of these mucous membrane. MOUTH: Mucous members of mouth are moist tongue is moist there is no ulcers. There is no bleeding from the gums. THROAT: There is no redness of the oropharynx. There is no exudates. SKIN: There is no skin lesions or skin rashes. There is no particular ecchymosis. NECK: There is mild JVD present. Carotids are equal there is no bruit. There is no lymphadenopathy. There is no goiter. There is no accessory muscle respiration use. Trachea central. LUNGS: Show diminished air entry, and prolonged expiration. There is bibasilar rales of CHF. There is no rhonchi or wheezing. HEART: S1-S2 is heard. S1 is of variable intensity. There is mild aortic sclerosis versus nonsignificant aortic stenosis murmur. There is mild mitral regurgitation murmur heard in the apex with radiation to the left axilla. There is no S3 gallop. There is no S4 gallop. There is systolic murmur left sternal border and the apex there is no rub. ABDOMEN: Is soft. Nontender. There is no hepatosplenomegaly. Bowel sounds well heard. There is no tender areas of masses. EXTREMITIES: Femorals are slightly diminished. There is no femoral bruits. Leg pulses are slightly diminished on the right side. Left is normal. There is a nontender small mildly expansile, and mildly pulsatile mass in the right popliteal region. There is 2-3+ pedal edema bilaterally up to the thigh. There is no cellulitis. The there is no neurovascular compromise in both lower extremities, although there is a little delayed capillary refill on the right foot. There is no calf tenderness. There is no clubbing. CURRENCY EXCHANGE SPECIALIST: The patient is conscious awake alert oriented x3 with no focal deficits. PSYCHIATRIC: The patient judgment insight are intact her affect is normal. EKG: Shows atrial fibrillation with diffuse nonspecific ST-T changes. The patient's venous Dopplers shows no evidence of superficial or deep vein thrombosis. There is a popliteal aneurysm on the right side with the potential limb threatening partial occlusion. Current Medications Generic Name Dose Route Start Last Admin Trade Name Freq PRN Reason Stop Dose Admin Acetaminophen 650 mg 01/06/19 12:35 Tylenol 325 Mg Tablet PO 02/05/19 12:34 Q4HP PRN FOR HEADACHE Albuterol 2 puff 01/06/19 13:42 Proair Hfa Inhalation Aerosol 8.5 Gm Mdi 02/05/19 13:41 Q4HP PRN FOR WHEEZING Albuterol/Ipratropium 1 puff 01/06/19 18:00 01/06/19 18:46 Combivent Respimat 4 Gm Mdi 02/05/19 17:59 1 puff BID CE Administration Aspirin 81 mg 01/07/19 10:00 Ecotrin 81 Mg Ec Tablet PO 02/06/19 09:59 DAILY [facility] Atorvastatin Calcium 80 mg 01/06/19 22:00 01/06/19 21:13 Lipitor 80 Mg Tablet PO 02/05/19 21:59 80 mg QHS CE Administration Cetirizine HCl 10 mg 01/07/19 10:00 Zyrtec 10 Mg Tablet PO 02/06/19 09:59 DAILY [facility] Cholecalciferol 5,000 unit 01/07/19 10:00 Vitamin D3 1000 Unit Tablet PO 02/06/19 09:59 DAILY [facility] Folic Acid 1 tab 01/07/19 10:00 Folbee Tablet PO 02/06/19 09:59 DAILY [facility] Heparin Sodium (Porcine) 0 - 12,000 unit 01/06/19 15:12 Heparin Inj 1,000 Unit/Ml 10 Ml Vial IV 02/05/19 15:11 .BOLUS PER PROTOCOL PRN RESPOND TO aPTT VALUE Protocol Heparin Sodium/Dextrose 25,000 unit in 250 mls @ 0 mls/hr 01/06/19 12:12 01/06/19 14:14 Heparin Rtu 25,000 Unit/250 Ml D5w Premix IV 02/05/19 12:11 8.7 unit/kg/hr CONTINUOUS PRN 10 mls/hr THIS MED IS NOT "PRN" Administration Protocol Titrate Lisinopril 5 mg 01/06/19 13:45 01/06/19 14:30 Prinivil 5 Mg Tablet PO 02/05/19 13:44 Not Given DAILY [facility] Ondansetron HCl 4 mg 01/06/19 12:35 Zofran Inj/Pf 4 Mg/2 Ml Sdv IV 02/05/19 12:34 Q6HP PRN FOR NAUSEA/VOMITING Patient Own Medication 500 mcg 01/07/19 10:00 Cyanocobalamin (Vitamin B-12) [Vitamin B-12] SL 02/06/19 09:59 .DAILY [facility] Sodium Chloride 2.5 ml 01/06/19 14:00 01/06/19 21:13 Saline Flush 2.5 Ml Monoject Prefil Syrin IV 02/05/19 13:59 2.5 ml Q8 CE Administration Discontinued Medications Generic Name Dose Route Start Last Admin Trade Name Freq PRN Reason Stop Dose Admin Aspirin 324 mg 01/06/19 12:35 01/06/19 14:10 Aspirin 81 Mg Chewable Tablet PO 01/06/19 12:36 324 mg NOW ONE Administration Digoxin 0.25 mg 01/06/19 11:27 01/06/19 11:43 Lanoxin Inj 0.5 Mg/2 Ml Ampule IV 01/06/19 11:28 0.25 mg NOW ONE Administration Digoxin 0.125 mg 01/06/19 14:30 01/06/19 15:34 Lanoxin Inj 0.5 Mg/2 Ml Ampule IV 01/06/19 14:31 Not Given NOW ONE Enoxaparin Sodium 35 mg 01/06/19 12:45 01/06/19 14:09 Lovenox Inj 60 Mg/0.6 Ml Disp.Syrin SUBCUT 02/05/19 12:44 Not Given Q12 [facility] Heparin Sodium (Porcine) 4,000 unit 01/06/19 12:12 01/06/19 12:47 Heparin Inj 1,000 Unit/Ml 10 Ml Vial IV 01/06/19 12:13 4,000 unit NOW ONE Administration Sodium Chloride 1,000 mls @ 500 mls/hr 01/06/19 20:00 01/06/19 19:48 Nacl 0.9% 1000 Ml Iv Soln IV 01/06/19 21:59 500 mls/hr X 1 BAG ONE Administration Nitroglycerin 0.5 gm 01/06/19 12:45 01/06/19 13:41 Nitrol 2% Ointment 1gm Packet TP 02/05/19 12:44 Not Given Q6 [facility] Patiromer 8.4 gm 01/06/19 17:00 01/06/19 18:28 [place] 8.4 Gm Susp Packet PO 01/06/19 17:01 8.4 gm NOW ONE Administration HOME MEDICATION: Albuterol Sulfate [Proair HFA Inhalation Aerosol 8.5 gm MDI] 2 puff IH Q4HP PRN 01/06/19 Aspirin [Ecotrin] 81 mg PO DAILY 01/06/19 Cetirizine HCl [Allergy Relief] 10 mg PO DAILY 01/06/19 Cholecalciferol (Vitamin D3) [Vitamin D3 5000 unit Capsule] 5,000 unit PO DAILY 01/06/19 Cyanocobalamin (Vitamin B-12) [Vitamin B-12] 500 mcg SL DAILY 01/06/19 Cyanocobalamin/Folic AC/Vit B6 [Folbic Tablet] 1 tab PO DAILY 01/06/19 Furosemide [Lasix 40 mg Tablet] 40 mg PO DAILY 01/06/19 Ipratropium/Albuterol Sulfate [Combivent Respimat 4 gm Mdi] 1 puff IH BID 01/06/19 Lisinopril [Prinivil 5 mg Tablet] 5 mg PO DAILY 01/06/19 Labs- Entire Visit 01/06/19 01/06/19 01/06/19 10:34 10:34 10:34 WBC 9.5 RBC 5.14 Hgb 15.5 Hct 46.4 MCV 90 MCH 30.1 MCHC 33.4 RDW 15.5 H Plt Count 216 Seg Neutrophils % 67.7 Lymphocytes % 20.1 Monocytes % 9.6 Eosinophils % 1.8 Basophils % 0.8 Absolute Neutrophils 6.4 Absolute Lymphocytes 1.9 Absolute Monocytes 0.9 Absolute Eosinophils 0.2 Absolute Basophils 0.1 PT 16.4 H INR 1.26 APTT Sodium 126.8 L Potassium 5.1 H Chloride 90 L Carbon Dioxide 24 Anion Gap 13 BUN 33 H Creatinine 1.96 H Est GFR ( Amer) 40 L Est GFR (Non-Af Amer) 33 L Glucose 153 H Hemoglobin A1c % Calcium 9.5 Total Bilirubin 1.3 Direct Bilirubin 0.7 H Neonat Total Bilirubin Not Reportable Neonat Direct Bilirubin Not Reportable Neonat Indirect Bili Not Reportable AST 63 H ALT 48 Alkaline Phosphatase 63 Creatine Kinase 75 CK-MB (CK-2) Troponin I NT-Pro-B Natriuret Pep Total Protein 7.0 Albumin 3.7 Lipase 105.2 TSH 01/06/19 01/06/19 01/06/19 10:34 10:34 10:34 WBC RBC Hgb Hct MCV MCH MCHC RDW Plt Count Seg Neutrophils % Lymphocytes % Monocytes % Eosinophils % Basophils % Absolute Neutrophils Absolute Lymphocytes Absolute Monocytes Absolute Eosinophils Absolute Basophils PT INR APTT 33.4 Sodium Potassium Chloride Carbon Dioxide Anion Gap BUN Creatinine Est GFR ( Amer) Est GFR (Non-Af Amer) Glucose Hemoglobin A1c % Calcium Total Bilirubin Direct Bilirubin Neonat Total Bilirubin Neonat Direct Bilirubin Neonat Indirect Bili AST ALT Alkaline Phosphatase Creatine Kinase CK-MB (CK-2) 7.94 H Troponin I 1.160 NT-Pro-B Natriuret Pep 09978 H Total Protein Albumin Lipase TSH 2.82 01/06/19 01/06/19 01/06/19 10:34 14:32 14:32 WBC RBC Hgb Hct MCV MCH MCHC RDW Plt Count Seg Neutrophils % Lymphocytes % Monocytes % Eosinophils % Basophils % Absolute Neutrophils Absolute Lymphocytes Absolute Monocytes Absolute Eosinophils Absolute Basophils PT INR APTT Sodium Potassium Chloride Carbon Dioxide Anion Gap BUN Creatinine Est GFR ( Amer) Est GFR (Non-Af Amer) Glucose Hemoglobin A1c % 5.7 Calcium Total Bilirubin Direct Bilirubin Neonat Total Bilirubin Neonat Direct Bilirubin Neonat Indirect Bili AST ALT Alkaline Phosphatase Creatine Kinase 72 CK-MB (CK-2) 6.95 H Troponin I 1.320 NT-Pro-B Natriuret Pep Total Protein Albumin Lipase TSH 01/06/19 01/06/19 01/06/19 18:40 20:30 20:30 WBC RBC Hgb Hct MCV MCH MCHC RDW Plt Count Seg Neutrophils % Lymphocytes % Monocytes % Eosinophils % Basophils % Absolute Neutrophils Absolute Lymphocytes Absolute Monocytes Absolute Eosinophils Absolute Basophils PT INR APTT 68.3 H D Sodium Potassium Chloride Carbon Dioxide Anion Gap BUN Creatinine Est GFR ( Amer) Est GFR (Non-Af Amer) Glucose Hemoglobin A1c % Calcium Total Bilirubin Direct Bilirubin Neonat Total Bilirubin Neonat Direct Bilirubin Neonat Indirect Bili AST ALT Alkaline Phosphatase Creatine Kinase 49 L CK-MB (CK-2) 3.73 Troponin I 0.905 NT-Pro-B Natriuret Pep Total Protein Albumin Lipase TSH Abdomen CT 01/06/19 00:00 IMPRESSION: 1. Small bilateral pleural effusions. 2. Scattered diverticuli. No acute diverticulitis. Chest X-Ray 01/06/19 10:22 IMPRESSION: Cardiomegaly. Mild interstitial edema is suspected. Lung Scan-VQ NM 01/06/19 11:58 IMPRESSION: NORMAL VENTILATION-PERFUSION LUNG SCAN. NEGATIVE FOR PULMONARY EMBOLI. IMPRESSION/RECOMMENDATION: 1. Limb threatening right popliteal aneurysm: Agree with continue the patient on heparin. Patient being transferred for this to an acute care hospital[facility]. 2. Elevated troponin I: Most likely secondary to supply demand mismatch secondary to patient's renal failure, atrial fibrillation with rapid ventricular response, and congestive heart failure. Doubt non-ST elevation WA. But the patient needs further workup to rule out cardiac cardiac etiology etiology of troponin I is elevation that is need to rule out non-ST elevation WA. 3. Atrial fibrillation at present with ventricular response fairly fast, but not very rapid. Continue IV heparin. Patient's corrected James vas 2 score is at least 3. Hence patient will benefit from long-term anticoagulation treatment. 4. Acute renal failure:? Acute on chronic kidney disease.: Avoid nephrotoxic drugs. Would recommend follow the patient's renal functions closely. 5. Congestive heart failure: Most likely related to rate, but need to rule out cardiomyopathy as a cause of patient's failure, and also need to assess for pulmonary hypertension/right heart failure causing leg edema. Would later recommend to get a echocardiogram to assess right and left heart pressures and LV and RV function. And possible valvular disease. 6. Diabetes mellitus, diet controlled. Watch Accu-Cheks closely. 7. Most likely clinically has aortic sclerosis versus non-hemodynamically significant aortic stenosis, and possibly mild mitral regurgitation. Hence would recommend echocardiogram to assess these. The patient's age, diabetes mellitus [diet-controlled], congestive heart failure, and atrial fibrillation patient later would need assessment for possible presence of underlying significant coronary artery disease. Medications reviewed. Management plan discussed with attending physician on the case. 60 minutes spent on this patient with more than 50% of time spent in direct patient care. Medical decision making is of high complexity. Since the patient being transferred to a tertiary care center, will sign off.
[2019-01-07 02:36] LABS: HEMATOCRIT 40.9 % (37.9-51.0); HEMOGLOBIN 13.8 g/dL (13.5-17.0); MEAN CORPUSCULAR HGB CONC 33.6 g/dL (32.0-36.0); MEAN CORPUSCULAR VOLUME 89 fl (80-97); PLATELET COUNT 186 10^3/uL (150-450); RED BLOOD COUNT 4.58 10^6/uL (4.35-5.55); RED CELL DISTRIBUTION WIDTH 14.9 % (11.5-14.0); WHITE BLOOD COUNT 7.6 10^3/uL (4.0-10.5)
[2019-01-07 03:31] LABS: CREATINE KINASE MB 5.41 ng/mL (<4.55); TROPONIN I 1.5 ng/mL
[2019-01-07 03:47] VITALS: BP 101/71
[2019-01-07] MEDS ORDERED: (PENDING PHARMACY ID) (Cyanocobalamin (Vitamin B-12) [Vitamin B-12] 500 MCG) SL SCH (10:00)
[2019-01-07] MEDS ORDERED: ASPIRIN 81 MG TABLET, ENT COATED PO SCH (10:00)
[2019-01-07] MEDS ORDERED: CETIRIZINE 10 MG TABLET PO SCH (10:00)
[2019-01-07] MEDS ORDERED: CHOLECALCIFEROL (D3) 1,000 UNIT TABLET PO SCH (10:00)
[2019-01-07] MEDS ORDERED: CYANOCOBALAMIN/FA/PYRIDOXINE TABLET PO SCH (10:00)
== END 2019-01-07 03:45 | disposition short-term general hospital (02) | DRG 281 ==
LOC: ER 09:56 → EH 13:45 → 3N 17:10
PROVIDERS: ADMIT Internal Medicine; ATTEND Internal Medicine
DX: I48.91 Unspecified atrial fibrillation (principal); I21.4 Non-ST elevation (NSTEMI) myocardial infarction; N17.9 Acute kidney failure, unspecified; I74.3 Embolism and thrombosis of arteries of the lower extremities; E87.1 Hypo-osmolality and hyponatremia; I50.22 Chronic systolic (congestive) heart failure; I72.4 Aneurysm of artery of lower extremity; J44.9 Chronic obstructive pulmonary disease, unspecified; E87.5 Hyperkalemia; R68.81 Early satiety; R07.9 Chest pain, unspecified; Z87.891 Personal history of nicotine dependence; Z79.82 Long term (current) use of aspirin; Z79.51 Long term (current) use of inhaled steroids; Z79.899 Other long term (current) drug therapy
CPT/HCPCS: 36415; 71045; 74150; 78582; 80053; 82550; 82553; 83036; 83690; 83880; 84443; 84484; 85025; 85027; 85610; 85730; 93005; 93010; 93970; 96374; 96375; 99291; A9540; A9567; J1160; J1644; J3490; J7030; Q9969